=== PATIENT | female | born 1960 | race Caucasian/White ===

== ENCOUNTER → 2019-03-31 | Outpatient (CLI) | payer OTHER | END | disposition home or self-care (01) | LOC: RAH 15:14 | PROVIDERS: ATTEND Family Medicine | DX: S83.241A Other tear of medial meniscus, current injury, right knee, initial encounter (principal); S83.281A Other tear of lateral meniscus, current injury, right knee, initial encounter; M25.461 Effusion, right knee; M71.21 Synovial cyst of popliteal space [Baker], right knee; X58.XXXA Exposure to other specified factors, initial encounter; Y93.89 Activity, other specified; Y92.89 Other specified places as the place of occurrence of the external cause; Y99.8 Other external cause status | CPT/HCPCS: 73721 ==

== ENCOUNTER 2019-05-02 01:37 | Emergency (ER) | payer OTHER ==
[2019-05-02] MEDS ORDERED: IBUPROFEN 600 MG TABLET ONE (02:12)
[2019-05-02] MEDS ORDERED: ACETAMINOPHEN-CODEINE 300/30MG TAB ONE (02:13)
== END 2019-05-02 03:29 | disposition home or self-care (01) ==
LOC: EDH 01:37
DX: S42.291A Other displaced fracture of upper end of right humerus, initial encounter for closed fracture (principal); E07.9 Disorder of thyroid, unspecified; Z88.8 Allergy status to other drugs, medicaments and biological substances; W18.39XA Other fall on same level, initial encounter; Y93.01 Activity, walking, marching and hiking; Y92.89 Other specified places as the place of occurrence of the external cause; Y99.8 Other external cause status
CPT/HCPCS: 29105; 73030; 73060

== ENCOUNTER 2019-05-13 11:17 | Observation (INO) | payer OTHER ==
[2019-05-13] VITALS (21 sets, daily range): BP systolic 101–173; BP diastolic 57–89
[~2019-05-13] VITALS: Ht 162.6 cm; Wt 79.8 kg
[2019-05-13 12:06] LABS: BASOPHILS % (AUTO) 0.4 % (0.0-5.0); EOSINOPHILS % (AUTO) 2.6 % (0.0-8.0); HEMATOCRIT 38.2 % (36-48); LYMPHOCYTES % (AUTO) 17.9 % (21.0-51.0); MEAN CORPUSCULAR HEMOGLOBIN 32.1 pg (27.0-33.0); MEAN CORPUSCULAR HGB CONC 34.8 g/dL (32.0-36.0); MEAN CORPUSCULAR VOLUME 92.2 fL (79-99); NEUTROPHILS % (AUTO) 73.1 % (40.0-77.0); PLATELET COUNT (AUTO) 245 K/uL (130-400); RED BLOOD CELL COUNT(AUTO) 4.14 MIL/uL (4.00-5.50); WHITE BLOOD COUNT (AUTO) 7.6 K/uL (4.8-10.8)
[2019-05-13 12:17] LABS: CREATININE 0.7 mg/dL (0.5-1.5)
[2019-05-13] MEDS ORDERED: LEVO50TA11 PO (12:59)
[2019-05-13] MEDS ORDERED: IBUP-2353 PO ×2 (13:02)
[2019-05-13] MEDS ORDERED: CALC600T12 PO (13:02)
[2019-05-13] MEDS ORDERED: MVI PO (13:02)
[2019-05-13] MEDS ORDERED: LEVO75TA10 PO (13:02)
[2019-05-13] MEDS ORDERED: ASCO10007 PO (13:02)
[2019-05-13] MEDS ORDERED: VITAMIN B12 PO (13:02)
[2019-05-13] MEDS ORDERED: VITA1CAP85 PO (13:02)
--- NOTE | 2019-05-13 13:15 | NUR ---
POTENTIAL FOR INFECTION: NO SHAVING NEEDED TO RIGHT SHOULDER / RT UPPER ARM VOICED PER TRANG TAYLOR MA. WIPED RT SHOULDER / RT UPPER ARM WITH ALENA:2% CHLORHEXIDINE GLUCONATE CLOTH PATIENTS PRE-OP SKIN PREP PER TRANG TAYLOR MA.
[2019-05-13] MEDS ORDERED: LACTATED RINGERS 1000ML 1,000 ML IV ONE (13:39)
[2019-05-13] MEDS: CEFAZOLIN SODIUM 1 GM VIAL IVP SCH ×2 (13:45→16:45)
[2019-05-13] MEDS ORDERED: DEXAMETHASONE SOD PHOSPHATE 10MG/ML 1ML VIAL ONE ×2 (14:45→16:09)
[2019-05-13] MEDS ORDERED: LIDOCAINE PF 2% 5ML ABBOJECT ONE ×2 (14:45→16:09)
[2019-05-13] MEDS ORDERED: PROPOFOL 10 MG/ML 20ML VIAL IV ONE ×2 (14:46→16:09)
[2019-05-13] MEDS ORDERED: FENTANYL CITRATE PF 50 MCG/1 ML 2ML VIAL ONE ×3 (14:46→19:06)
[2019-05-13] MEDS ORDERED: MIDAZOLAM HCL 1 MG/ML 2ML VIAL ONE ×2 (14:46→16:10)
[2019-05-13] MEDS ORDERED: ONDANSETRON HCL 4 MG/2 ML VIAL ONE ×2 (14:46→16:09)
[2019-05-13] MEDS ORDERED: ROCURONIUM 10MG/1ML SYR 10 MG/ML ML ONE ×2 (14:47→16:10)
[2019-05-13] MEDS ORDERED: CEFAZOLIN SODIUM 1 GM VIAL ONE (16:02)
[2019-05-13] MEDS ORDERED: TRANEXAMIC ACID 1000MG/10ML IV ONE (16:03)
[2019-05-13] MEDS ORDERED: NEOSTIGMINE 5MG/5ML SYR IV ONE (16:09)
[2019-05-13] MEDS ORDERED: SUCCINYLCHOLINE 200MG/10ML SYR ONE (16:09)
[2019-05-13] MEDS ORDERED: GLYCOPYRROLATE 1 MG/5 ML SYRINGE ONE ×2 (16:09→16:40)
[2019-05-13] MEDS ORDERED: ROPIVACAINE 0.5% 5MG/ML 30ML IJ ONE (16:12)
[2019-05-13] MEDS ORDERED: EPHEDRINE SULFATE 50 MG/ML AMPULE ONE (17:32)
[2019-05-13] MEDS ORDERED: DIPHENHYDRAMINE HCL 25 MG CAPSULE PO PRN (19:45)
[2019-05-13] MEDS ORDERED: TEMAZEPAM 15 MG CAPSULE PO PRN (19:45)
[2019-05-13] MEDS ORDERED: POTASSIUM CHLORIDE 20MEQ/100ML 100 ML IV PRN (19:45)
[2019-05-13] MEDS ORDERED: CALCIUM CARBONATE 500 MG TABLET PO PRN (19:45)
[2019-05-13] MEDS ORDERED: LIDOCAINE HCL-MPF 1% 2ML VIAL IVP PRN (19:45)
[2019-05-13] MEDS ORDERED: KETOROLAC TROMETHAMINE 30MG/ML IV PRN (19:45)
[2019-05-13] MEDS ORDERED: POTASSIUM CHLORIDE 20 MEQ ERTAB PO PRN (19:45)
[2019-05-13] MEDS ORDERED: HYDROCODONE/ACETAMINOPHEN 5/325 MG TAB PO PRN (19:45)
[2019-05-13] MEDS ORDERED: POTASSIUM CHLORIDE 10% ELIXIR 20 MEQ/15 ML UDCUP PO PRN (19:45)
[2019-05-13] MEDS ORDERED: DiphenhydrAMINE HCL 50 MG/ML VIAL IVP PRN (19:45)
[2019-05-13] MEDS ORDERED: ONDANSETRON HCL 4 MG/2 ML VIAL IVP PRN (19:45)
--- NOTE | 2019-05-13 20:30 | NUR ---
PT TRANSFERRED FORM PACU, PT AWAKE, ALERT AND RESPONSIVE. OXYGEN VIA NC 2L/MIN, NO C/O SOB OR DISTRESS. NO VOICED PAIN AT THIS TIME. POST OP VITALS WNL FOR PT. SLING TO RT UPPER EXTREMITY. PT ORIENTED TO ROOM, CALL ARELLANO WITHIN REACH. Addendum: 05/13/19 at 2057 by CANDELARIA CROCKETT RN Amended: Links added.
[2019-05-13] MEDS: SODIUM CHLORIDE 0.9% 1000ML 1,000 ML IV SCH (20:42)
[2019-05-14] MEDS: CEFAZOLIN SODIUM 1 GM VIAL IVP SCH ×2 (01:00→08:12)
[2019-05-14] MEDS: FAMOTIDINE 20MG TAB 20 MG TAB PO SCH ×2 (01:00→08:17)
[2019-05-14 03:37] VITALS: BP 114/70
[2019-05-14] MEDS: SODIUM CHLORIDE 0.9% 1000ML 1,000 ML IV SCH (05:31)
[2019-05-14 06:47] LABS: CREATININE 0.8 mg/dL (0.5-1.5); POTASSIUM 4.1 mmol/L (3.5-5.1)
[2019-05-14 07:26] LABS: WHITE BLOOD COUNT (AUTO) 9.3 K/uL (4.8-10.8)
[2019-05-14 07:27] LABS: HEMATOCRIT 37.3 % (36-48); MEAN CORPUSCULAR HEMOGLOBIN 31.1 pg (27.0-33.0); MEAN CORPUSCULAR HGB CONC 33.7 g/dL (32.0-36.0); MEAN CORPUSCULAR VOLUME 92.4 fL (79-99); RED BLOOD CELL COUNT(AUTO) 4.03 MIL/uL (4.00-5.50)
[2019-05-14 07:28] LABS: PLATELET COUNT (AUTO) 252 K/uL (130-400); RED CELL DISTRIBUTION WIDTH 13.5 % (11.0-15.5)
[2019-05-14 08:00] VITALS: BP 138/76
[2019-05-14] MEDS ORDERED: POLYETHYLENE GLYCOL 3350 17 GM POWD.PACK PO SCH (09:00)
[2019-05-14] MEDS ORDERED: ENOXAPARIN SODIUM 40 MG/0.4 ML SYRINGE SQ SCH (09:00)
[2019-05-14 11:34] VITALS: BP 112/62
[2019-05-14] MEDS: HYDROCODONE/ACETAMINOPHEN 5/325 MG TAB PO PRN ×2 (11:49→12:29)
[2019-05-14] MEDS ORDERED: PSYLLIUM SEED 1 EACH PACKET PO SCH (12:00)
--- NOTE | 2019-05-14 14:10 | NUR ---
DR. BRADY ABREU IN TO SEE PATIENT. ORDERS TO CHANGE DRESSING AND DISCHARGE HOME WERE RECEIVED.
[2019-05-14] MEDS ORDERED: HYDR-4457 PO (14:19)
[2019-05-14 16:50] VITALS: BP 110/61
[2019-05-15] MEDS ORDERED: BISACODYL 5 MG TABLET.DR PO PRN (19:45)
[2019-05-16] MEDS ORDERED: BISACODYL 10 MG SUPP.RECT RC PRN (19:45)
== END 2019-05-14 18:55 | disposition home or self-care (01) ==
LOC: DAHIP 11:17 → UNDOADMOB 11:17 → DAHIP 11:43 → EDSTATUS 14:25 → 4AH 20:30
PROVIDERS: ADMIT Orthopaedic Surgery; ATTEND Orthopaedic Surgery
DX: S42.291A Other displaced fracture of upper end of right humerus, initial encounter for closed fracture (principal); E03.9 Hypothyroidism, unspecified; Z79.899 Other long term (current) drug therapy; W18.30XA Fall on same level, unspecified, initial encounter; Y93.9 Activity, unspecified; Y92.009 Unspecified place in unspecified non-institutional (private) residence as the place of occurrence of the external cause
CPT/HCPCS: 23615; 36415 ×2; 73060; 80048 ×2; 85025; 85027; 96372; 96374; 96376 ×2; A4565; A4600; A4649 ×2; A4930; A6207; C1713 ×8; C1776; G0168; G0378 ×23; J0330; J0690 ×4; J1100 ×2; J1650; J2001 ×2; J2250 ×2; J2405 ×2; J2704 ×2; J2710; J2795; J3010 ×3; J3490 ×4; J7030; J7120; 96375

== ENCOUNTER → 2019-10-07 | Outpatient (CLI) | payer OTHER ==
[~2019-10-07] MED LIST: ASCO10007 PO; CALC600T12 PO; HYDR-4457 PO; LEVO50TA11 PO; LEVO75TA10 PO; MVI PO; VITA1CAP85 PO; VITAMIN B12 PO
[2019-10-07 20:12] LABS: APPEARANCE BODY FLUID CLOUDY (CLEAR); COLOR,BODY FLUID YELLOW (LT YELLOW); SPECIMENTYPE,BODY FLUID SYNOVIAL
[2019-10-07 20:13] LABS: TOTAL VOLUME,BODY FLUID 5 mL
[2019-10-07 20:14] LABS: BODY FLUID RBC 1021 /cu. mm.; BODY FLUID WBC 56 /cu. mm.
[2019-10-07 20:16] LABS: BF EOSINOPHIL 1 %; BF LYMPHOCYTE 89 %; BF MONOCYTE 1 %
[2019-10-07 23:38] LABS: CRYSTALS, SYNOVIAL FLUID SEE SEPARATE REPORT
== END | disposition home or self-care (01) ==
LOC: LAB 16:31
PROVIDERS: ATTEND Orthopaedic Surgery
DX: M25.461 Effusion, right knee (principal)
CPT/HCPCS: 87070; 87076; 87205; 89051; 89060

== ENCOUNTER 2020-01-18 14:00 | Observation (INO) | payer OTHER ==
[~2020-01-18] VITALS: Ht 160 cm; Wt 79.9 kg
[~2020-01-18 14:00] MED LIST changes: -HYDR-4457 PO; -LEVO75TA10 PO; -MVI PO
[2020-01-18 15:03] LABS: BASOPHILS % (AUTO) 0.4 % (0.0-5.0); EOSINOPHILS % (AUTO) 1.2 % (0.0-8.0); LYMPHOCYTES % (AUTO) 26.8 % (21.0-51.0); MEAN CORPUSCULAR HEMOGLOBIN 29.6 pg (27.0-33.0); MEAN CORPUSCULAR HGB CONC 32.6 g/dL (32.0-36.0); MEAN CORPUSCULAR VOLUME 90.9 fL (79-99); MONOCYTES % (AUTO) 6.2 % (3.0-13.0); NEUTROPHILS % (AUTO) 65.1 % (40.0-77.0); PLATELET COUNT (AUTO) 242 K/uL (130-400); RED BLOOD CELL COUNT(AUTO) 4.73 MIL/uL (4.00-5.50); RED CELL DISTRIBUTION WIDTH 12.4 % (11.0-15.5); WHITE BLOOD COUNT (AUTO) 7.2 K/uL (4.8-10.8)
[2020-01-18 15:10] VITALS: BP 167/70
[2020-01-18] MEDS ORDERED: BETA1TAB18 PO (15:34)
[2020-01-20] VITALS (22 sets, daily range): BP systolic 94–147; BP diastolic 46–73
--- NOTE | 2020-01-20 09:30 | NUR ---
PRE-PROCEDURE AWAKE IN NO ACUTE DISTRESS. DENIES PAIN. SIDE RAILS UP X2, BED IN LOWEST POSITION, AND CALL LIGHT W/IN REACH. NO FAMILY AT BEDSIDE. EMERGENCY CONTACT SHAWNA MCINTYRE, SISTER [phone].
--- NOTE | 2020-01-20 09:45 | NUR ---
TEDS AND SCDS PLACED.
[2020-01-20] MEDS ORDERED: LACTATED RINGERS 1000ML 1,000 ML IV ONE (10:06)
[2020-01-20] MEDS ORDERED: CALDOLOR 800MG+NS 250ML 250 ML IV ONE (10:10)
--- NOTE | 2020-01-20 10:15 | NUR ---
BELONGINGS SECURITY AT BEDSIDE TO SECURE PT BELONGINGS. CELLPHONE, 2 BAGS, CLOTHING.
[2020-01-20] MEDS: CEFAZOLIN SODIUM 1 GM VIAL IVP SCH ×2 (10:50→14:00)
[2020-01-20] MEDS ORDERED: PROPOFOL 10 MG/ML 20ML VIAL IV ONE (11:41)
[2020-01-20] MEDS ORDERED: MIDAZOLAM HCL 1 MG/ML 2ML VIAL ONE (11:41)
[2020-01-20] MEDS ORDERED: LIDOCAINE PF 2% 5ML ABBOJECT ONE (11:41)
[2020-01-20] MEDS ORDERED: DEXAMETHASONE SOD PHOSPHATE 10MG/ML 1ML VIAL ONE ×2 (11:41→13:57)
[2020-01-20] MEDS ORDERED: ROCURONIUM 10MG/1ML SYR 10 MG/ML ML ONE (11:41)
[2020-01-20] MEDS ORDERED: FENTANYL CITRATE PF 50 MCG/1 ML 5ML AMP IV ONE (11:42)
[2020-01-20] MEDS ORDERED: GLYCOPYRROLATE 1 MG/5 ML SYRINGE ONE (13:50)
[2020-01-20] MEDS ORDERED: NEOSTIGMINE 5MG/5ML SYR IV ONE (13:50)
[2020-01-20] MEDS ORDERED: ONDANSETRON HCL 4 MG/2 ML VIAL ONE (13:58)
[2020-01-20] MEDS ORDERED: MEPERIDINE-PF 25 MG/ML SYG ONE (14:00)
[2020-01-20] MEDS ORDERED: DEXTROSE 5 %-0.45 % NACL 1,000 ML IV PRN (14:14)
[2020-01-20] MEDS ORDERED: SIMETHICONE 80 MG TAB.CHEW PO PRN ×2 (14:15)
[2020-01-20] MEDS ORDERED: BISACODYL 10 MG SUPP.RECT RC PRN ×2 (14:15)
[2020-01-20] MEDS ORDERED: DOCUSATE SODIUM 100 MG CAP PO PRN ×2 (14:15)
[2020-01-20] MEDS ORDERED: ONDANSETRON HCL 4 MG/2 ML VIAL IVP PRN (14:15)
[2020-01-20] MEDS ORDERED: ACETAMINOPHEN-CODEINE 300/30MG TAB PO PRN ×2 (14:15)
[2020-01-20] MEDS ORDERED: MEPERIDINE-PF 75 MG/ML SYG IM PRN (14:15)
[2020-01-20] MEDS ORDERED: PROMETHAZINE HCL 25 MG/ML 1ML AMPULE IM PRN ×2 (14:15)
[2020-01-20] MEDS ORDERED: IBUPROFEN 800 MG TAB PO SCH (14:15)
[2020-01-20] MEDS ORDERED: IBUPROFEN 800 MG TAB PO PRN (14:15)
[2020-01-20] MEDS ORDERED: HYDROCODONE/ACETAMINOPHEN 5/325 MG TAB PO PRN (14:15)
[2020-01-20] MEDS: CALDOLOR 800MG+NS 250ML 250 ML IV SCH (21:47)
[2020-01-21 03:50] VITALS: BP 121/73
[2020-01-21] MEDS: CALDOLOR 800MG+NS 250ML 250 ML IV SCH (05:47)
[2020-01-21 06:29] LABS: HEMATOCRIT 37.2 % (36-48); MEAN CORPUSCULAR HEMOGLOBIN 29.3 pg (27.0-33.0); MEAN CORPUSCULAR HGB CONC 32.8 g/dL (32.0-36.0); MEAN CORPUSCULAR VOLUME 89.4 fL (79-99); PLATELET COUNT (AUTO) 219 K/uL (130-400); RED BLOOD CELL COUNT(AUTO) 4.16 MIL/uL (4.00-5.50); WHITE BLOOD COUNT (AUTO) 13.6 K/uL (4.8-10.8)
--- NOTE | 2020-01-21 07:00 | NUR ---
Padilla; Padilla Catheter taken out patient tolerated it well. Advice to call for help if needed. Vaginal packing taken out with small brownish bloody discharges. Bushra care done. Patient advice to ambulate 4 x a day, she verbalizes understanding.
[2020-01-21 07:10] VITALS: BP 124/59
[2020-01-21] MEDS: CEFAZOLIN SODIUM 1 GM VIAL IVP SCH (10:56)
[2020-01-21 11:28] VITALS: BP 115/65
[2020-01-21] MEDS ORDERED: IBUPROFEN 800 MG TAB PO SCH (14:15)
--- NOTE | 2020-01-21 15:10 | NUR ---
DISCHARGE INSTRUCTIONS/INFORMATION GIVEN TO PATIENT. TEACH BACK METHOD WAS USED TO EDUCATE PATIENT ON ACTIVITY RESTRICTIONS, PAIN MANAGEMENT, USE OF IS, S/S TO MONITOR, WHEN TO CALL MD, AND F/U APPOINTMENTS. PIV REMOVED. TIP WAS INTACT. ALL BELONGINGS WERE PACKED AND TAKEN HOME.
== END 2020-01-21 15:05 | disposition home or self-care (01) ==
LOC: DAHIP 01-20 08:26 → EDSTATUS 01-20 14:00 → WSH 01-20 15:15
PROVIDERS: ADMIT Obstetrics & Gynecology; ATTEND Obstetrics & Gynecology
DX: N81.3 Complete uterovaginal prolapse (principal); E03.9 Hypothyroidism, unspecified; M19.90 Unspecified osteoarthritis, unspecified site; Z79.899 Other long term (current) drug therapy
CPT/HCPCS: 36415 ×2; 57240; 58260; 85025; 85027; 86850; 86900; 86901; 96365; 96366; 96375; A4213; A4215; A4221; A4222; A4223; A4344; A4351; A4510; A4600; A4663; A6260; G0378 ×28; J0690; J1100 ×2; J1741 ×3; J2001; J2175; J2250; J2405 ×2; J2704; J2710; J3010; J3490; J7120 ×2

== ENCOUNTER → 2020-06-19 | Outpatient (CLI) | payer OTHER ==
[~2020-06-19] MED LIST changes: +ASCO100031 PO; -ASCO10007 PO; +BETA1TAB18 PO; -CALC600T12 PO; +CALC600T15 PO
[2020-06-19 11:31] LABS: BASOPHILS % (AUTO) 0.3 % (0.0-5.0); HEMATOCRIT 43.5 % (36-48); MEAN CORPUSCULAR HEMOGLOBIN 30.2 pg (27.0-33.0); MEAN CORPUSCULAR HGB CONC 33.6 g/dL (32.0-36.0); MEAN CORPUSCULAR VOLUME 89.9 fL (79-99); MONOCYTES % (AUTO) 4.6 % (3.0-13.0); NEUTROPHILS % (AUTO) 70.9 % (40.0-77.0); PLATELET COUNT (AUTO) 238 K/uL (130-400); RED BLOOD CELL COUNT(AUTO) 4.84 MIL/uL (4.00-5.50); RED CELL DISTRIBUTION WIDTH 12.4 % (11.0-15.5); WHITE BLOOD COUNT (AUTO) 5.9 K/uL (4.8-10.8)
[2020-06-19 11:58] LABS: ALBUMIN 4.2 g/dL (3.5-5.0); BILIRUBIN,TOTAL 0.7 mg/dL (0.2-1.0); CREATININE 0.8 mg/dL (0.5-1.5); CRP QUANTITATIVE 7.1 mg/L (0.00-9.0); POTASSIUM 3.7 mmol/L (3.5-5.1); THYROID STIMULATING HORMONE 0.56 uIU/mL (0.36-3.74); TOTAL PROTEIN, SERUM 8.4 g/dL (6.0-8.3)
[2020-06-19 13:17] LABS: ERYTHROCYTE SEDIMENTATION RATE 13 MM/HR (0-30)
[2020-06-19 13:38] LABS: HEMOGLOBIN A1C 6.1 % (4.0-6.0)
== END | disposition home or self-care (01) ==
LOC: LAB 10:26
PROVIDERS: ATTEND Family Medicine
DX: E03.9 Hypothyroidism, unspecified (principal); R20.0 Anesthesia of skin; M25.50 Pain in unspecified joint; E78.00 Pure hypercholesterolemia, unspecified
CPT/HCPCS: 36415; 80053; 80061; 83036; 84439; 84443; 85025; 85651; 86038; 86140; 86200; 86431

== ENCOUNTER → 2020-08-20 | Outpatient (CLI) | payer OTHER ==
[2020-08-20 15:41] LABS: BASOPHILS % (AUTO) 0.4 % (0.0-5.0); EOSINOPHILS % (AUTO) 0.7 % (0.0-8.0); HEMATOCRIT 45.1 % (36-48); LYMPHOCYTES % (AUTO) 21.8 % (21.0-51.0); MEAN CORPUSCULAR HEMOGLOBIN 30.1 pg (27.0-33.0); MEAN CORPUSCULAR VOLUME 91.1 fL (79-99); PLATELET COUNT (AUTO) 254 K/uL (130-400); RED BLOOD CELL COUNT(AUTO) 4.95 MIL/uL (4.00-5.50); RED CELL DISTRIBUTION WIDTH 12.1 % (11.0-15.5)
[2020-08-20 15:58] LABS: HEMOGLOBIN A1C 5.8 % (4.0-6.0)
[2020-08-20 16:00] LABS: ALANINE AMINOTRANSFERASE 30 U/L (12-78); ALBUMIN 4.4 g/dL (3.5-5.0); ASPARTATE AMINOTRANSFERASE 26 U/L (10-37); BILIRUBIN,TOTAL 0.4 mg/dL (0.2-1.0); CARBON DIOXIDE 29 mmol/L (21-32); CHLORIDE 102 mmol/L (101-111); CREATINE KINASE, TOTAL 40 U/L (21-232); CREATININE 0.6 mg/dL (0.5-1.5); GLOMERULAR FILTR. RATE CALC 109 mL/min (>60); GLUCOSE,RANDOM 92 mg/dL (70-105); POTASSIUM 3.8 mmol/L (3.5-5.1); SODIUM SERUM 138 mmol/L (136-145); TOTAL PROTEIN, SERUM 8.8 g/dL (6.0-8.3); UREA NITROGEN, BLOOD 16 mg/dL (7-18)
[2020-08-20 16:11] LABS: AMMONIA 13 umol/L (11-32)
[2020-08-20 16:58] LABS: ERYTHROCYTE SEDIMENTATION RATE 13 MM/HR (0-30)
[2020-08-21 10:22] LABS: RAPID PLASMA REAGIN NONREACTIVE (NONREACTIVE)
== END | disposition home or self-care (01) ==
LOC: LAB 14:41
PROVIDERS: ATTEND Nurse Practitioner Family
DX: G60.9 Hereditary and idiopathic neuropathy, unspecified (principal)
CPT/HCPCS: 36415; 80053; 82140; 82164; 82525; 82550; 82607; 82746; 83036; 83090; 84207; 84425; 84439; 84443; 84446; 84630; 85025; 85651; 86038; 86140; 86215; 86235; 86334; 86592; 86618; 86701; 87390

== ENCOUNTER → 2020-08-21 | Outpatient (CLI) | payer OTHER ==
[~2020-08-21] MED LIST changes: +IOHEXOL-350 50ML VIAL IV ONE
== END | disposition home or self-care (01) ==
LOC: RAH 11:33
PROVIDERS: ATTEND Nurse Practitioner Family
DX: I67.82 Cerebral ischemia (principal); R20.0 Anesthesia of skin; K14.8 Other diseases of tongue
CPT/HCPCS: 70470; Q9967

== ENCOUNTER → 2021-01-22 | Outpatient (CLI) | payer OTHER ==
[~2021-01-22] MED LIST changes: -IOHEXOL-350 50ML VIAL IV ONE
[2021-01-22 17:11] LABS: THYROID STIMULATING HORMONE 0.59 uIU/mL (0.36-3.74)
[2021-01-23 07:48] LABS: RAPID PLASMA REAGIN NONREACTIVE (NONREACTIVE)
== END | disposition home or self-care (01) ==
LOC: LAB 15:51
PROVIDERS: ATTEND Nurse Practitioner Family
DX: G60.9 Hereditary and idiopathic neuropathy, unspecified (principal)
CPT/HCPCS: 36415; 82164; 82607; 82746; 83883; 84443; 86592; 86701; 87390